=== PATIENT | female | born 1950 | race Caucasian/White ===

== ENCOUNTER 2016-11-28 14:55 | Observation (INO) | payer OTHER ==
[~2016-11-28] VITALS: Ht 170.2 cm; Wt 47.2 kg
[~2016-11-28 14:55] MED LIST: AMLO2.5T PO; AMLO5TAB2 PO; ASPI-110 PO; ATOR40TA16 PO; BLOOD PRESSURE1 M20; CALC600T25; CHEL50TA PO; LEVEMIR SQ; LISI-519 PO; METO25TA6 PO; ONETTES4; SITA25 PO; VITA100032
[2016-11-28 14:59] VITALS: BP 156/75; PULSE 73; RESP 18; TEMP 97.5; O2SAT 100
[2016-11-28] MEDS ORDERED: SODIUM CHLORIDE 0.9% FLUSH 10 ML FLUSH IVF PRN (15:15)
--- NOTE | 2016-11-28 15:22 | PD ---
HPI Chief Complaint: Diabetic Time Seen by Provider: 14:59 Travel History International Travel<30 days: No Contact w/Intl Traveler<30days: No Traveled to known affect area: No History of Present Illness HPI 66-year-old female presents by ambulance after the patient states that her called because she wasn't acting herself. When they got on scene her sugar was 44. They gave her an amp of dextrose and here her sugar is in the 180s. Patient at this time denies any complaints and doesn't remember the episode. She states that she's never dropped her sugar before that she knows about. She states that she is on diabetes pills and insulin and she's not sure of all their names. She states she did eat lunch today. She denies specific modifying factors. Quality is low. PFSH Past Medical History Diabetes: Yes Diminished Hearing: No Heparin Induced Thrombocytopen: No Hypertension: Yes Medical other: Yes Influenza Vaccination: Yes ?: Not Menopausal: Yes : 0 Past Surgical History Cholecystectomy: Yes Social History Alcohol Use: No Tobacco Use: Yes (6CIG/DAY) Allergies-Medications (Allergen,Severity, Reaction): Coded Allergies: No Known Allergies (Unverified , 11/28/16) Reported Meds & Prescriptions Reported Meds & Active Scripts Active Amlodipine (Amlodipine Besylate) 2.5 Mg Tab 2.5 Mg PO DAILY Metoprolol Succinate ER 24 HR (Metoprolol Succinate) 25 Mg Tab 25 Mg PO DAILY Lisinopril 5 Mg Tab 5 Mg PO DAILY Amlodipine (Amlodipine Besylate) 5 Mg Tab 5 Mg PO DAILY Levemir Inj (Insulin Detemir) 1,000 unit/ 10 ML Vial 30 Units SQ AC BREAKFAST Do not mix with any other Insulin. Levemir Inj (Insulin Detemir) 1,000 unit/ 10 ML Vial 9 Units SQ HS Do not mix with any other Insulin. Atorvastatin (Atorvastatin Calcium) 40 Mg Tab 40 Mg PO HS Januvia (Sitagliptin Phosphate) 25 Mg Tab 25 Mg PO DAILY Reported Zinc (Zinc Gluconate) 50 Mg Tab 50 Mg PO DAILY Calcium (Calcium Carbonate) 600 Mg Tab Aspirin 81 (Aspirin) 81 Mg Tabdr 81 Mg PO DAILY Review of Systems Except as stated in HPI: all other systems reviewed are Neg Physical Exam Narrative GENERAL: Well-nourished, well-developed patient. Well-appearing SKIN: Warm and dry. HEAD: Normocephalic and atraumatic. EYES: No injection or drainage. ENT: No nasal drainage noted. NECK: Supple, trachea midline. CARDIOVASCULAR: Regular rate and rhythm RESPIRATORY: Breath sounds equal bilaterally. No accessory muscle use. GASTROINTESTINAL: Abdomen soft, non-tender, nondistended. EXTREMITIES: No edema. NEUROLOGICAL: Awake and alert. Motor and sensory grossly within normal limits. Normal speech. Data Data Last Documented VS Vital Signs Date Time Temp Pulse Resp B/P Pulse Ox O2 Delivery O2 Flow Rate FiO2 11/28/16 15:39 71 18 145/84 98 Room Air 11/28/16 14:59 97.5 Orders Electrocardiogram (11/28/16 15:07) Complete Blood Count With Diff (11/28/16 15:07) Comprehensive Metabolic Panel (11/28/16 15:07) Magnesium (Mg) (11/28/16 15:07) Phosphorus (Po4) (11/28/16 15:07) Urinalysis - C+S If Indicated (11/28/16 15:07) Blood Glucose (11/28/16 15:07) Ecg Monitoring (11/28/16 15:07) Iv Access Insert/Monitor (11/28/16 15:07) Oximetry (11/28/16 15:07) Sodium Chloride 0.9% Flush (Ns Flush) (11/28/16 15:15) Sodium Chlor 0.9% 1000 Ml Inj (Ns 1000 M (11/28/16 16:15) Admit Order (Ed Use Only) (11/28/16 16:20) Labs Laboratory Tests Test 11/28/16 11/28/16 15:25 15:35 White Blood Count 9.2 TH/MM3 Red Blood Count 3.38 MIL/MM3 Hemoglobin 10.4 GM/DL Hematocrit 31.6 % Mean Corpuscular Volume 93.7 FL Mean Corpuscular Hemoglobin 30.8 PG Mean Corpuscular Hemoglobin 32.8 % Concent Red Cell Distribution Width 13.5 % Platelet Count 201 TH/MM3 Mean Platelet Volume 7.3 FL Neutrophils (%) (Auto) 79.9 % Lymphocytes (%) (Auto) 13.0 % Monocytes (%) (Auto) 5.8 % Eosinophils (%) (Auto) 0.6 % Basophils (%) (Auto) 0.7 % Neutrophils # (Auto) 7.3 TH/MM3 Lymphocytes # (Auto) 1.2 TH/MM3 Monocytes # (Auto) 0.5 TH/MM3 Eosinophils # (Auto) 0.1 TH/MM3 Basophils # (Auto) 0.1 TH/MM3 CBC Comment DIFF FINAL Differential Comment Sodium Level 131 MEQ/L Potassium Level 3.8 MEQ/L Chloride Level 99 MEQ/L Carbon Dioxide Level 23.6 MEQ/L Anion Gap 8 MEQ/L Blood Urea Nitrogen 36 MG/DL Creatinine 2.00 MG/DL Estimat Glomerular Filtration 25 ML/MIN Rate Random Glucose 128 MG/DL Calcium Level 8.7 MG/DL Phosphorus Level 3.3 MG/DL Magnesium Level 1.8 MG/DL Total Bilirubin 0.4 MG/DL Aspartate Amino Transf 31 U/L (AST/SGOT) Alanine Aminotransferase 35 U/L (ALT/SGPT) Alkaline Phosphatase 72 U/L Total Protein 6.7 GM/DL Albumin 3.9 GM/DL Urine Color YELLOW Urine Turbidity CLEAR Urine pH 6.0 Urine Specific [place] 1.004 Urine Protein NEG mg/dL Urine Glucose (UA) NEG mg/dL Urine Ketones NEG mg/dL Urine Occult Blood NEG Urine Nitrite NEG Urine Bilirubin NEG Urine Leukocyte Esterase NEG Urine WBC 0-2 /hpf Urine Squamous Epithelial 0-5 /hpf Cells Microscopic Urinalysis Comment CULT NOT INDICATED MDM Medical Decision Making Medical Screen Exam Complete: Yes Emergency Medical Condition: Yes Medical Record Reviewed: Yes (past history confirmed) Interpretation(s) EKG is normal sinus rhythm at 67 without STEMI criteria or consecutive T-wave inversion CBC & BMP Diagram 11/28/16 15:25 Differential Diagnosis Overmedication, infection, poor by mouth intake.... Narrative Course Will check blood work, urinalysis and monitor glucose and reevaluate labs with acute renal failure, patient updated and agrees to admit Physician Communication Physician Communication dr mandujano agrees to admit Diagnosis Primary Impression: Acute kidney injury Additional Impression: Hypoglycemia Admitting Information Admitting Physician Requests: Observation Anna Cornelius MD Nov 28, 2016 15:21
[2016-11-28 15:39] VITALS: BP 145/84; PULSE 71; RESP 18; O2SAT 98
[2016-11-28 15:44] LABS: BLOOD, URINE NEG (NEG); GLUCOSE,URINE NEG (NEG); KETONE, URINE NEG (NEG); NITRITE,URINE NEG (NEG)
[2016-11-28 15:45] LABS: AUTOMATED NEUTROPHIL # 7.3 TH/MM3 (1.8-7.7); BASOPHIL # 0.1 TH/MM3 (0-0.2); BASOPHIL % 0.7 % (0.0-2.0); EOSINOPHIL # 0.1 TH/MM3 (0-0.4); EOSINOPHIL % 0.6 % (0.0-4.0); HEMATOCRIT 31.6 % (35.0-46.0); HEMO FLAGS DIFF FINAL; LYMPHOCYTE # 1.2 TH/MM3 (1.0-4.8); MEAN CELL VOLUME 93.7 FL (80.0-100.0); MEAN CORPUSCULAR HEMOGLOBIN 30.8 PG (27.0-34.0); MEAN CORPUSCULAR HGB CONC 32.8 % (32.0-36.0); MONO % 5.8 % (0.0-8.0); NEUT % 79.9 % (16.0-70.0); PLATELET COUNT 201 TH/MM3 (150-450); RED BLOOD COUNT 3.38 MIL/MM3 (4.00-5.30); RED CELL DISTRIBUTION WIDTH 13.5 % (11.6-17.2); WHITE BLOOD COUNT 9.2 TH/MM3 (4.0-11.0)
[2016-11-28 15:46] LABS: URINE COLOR YELLOW (YELLW/STRAW)
[2016-11-28 15:48] LABS: COMMENT (UR) CULT NOT INDICATED; CULTURE IF INDICATED CULT NOT INDICATED; SQUAMOUS EPITHELIAL CELL URINE 0-5 /hpf (0-5); WBC, URINE 0-2 /hpf (0-5)
[2016-11-28 15:51] LABS: CHLORIDE 99 MEQ/L (98-107); POTASSIUM 3.8 MEQ/L (3.5-5.1); SODIUM (NA) 131 MEQ/L (136-145)
[2016-11-28 15:54] LABS: ANION GAP 8 MEQ/L (5-15); BICARBONATE 23.6 MEQ/L (21.0-32.0); BLOOD UREA NITROGEN 36 MG/DL (7-18); MAGNESIUM 1.8 MG/DL (1.5-2.5)
[2016-11-28 15:57] LABS: ALT (GPT) 35 U/L (10-53); AST (GOT) 31 U/L (15-37); GLOMERULAR FILTRATION RATE 25 ML/MIN (>89)
[2016-11-28 15:59] LABS: TOTAL BILIRUBIN ADULT 0.4 MG/DL (0.2-1.0)
[2016-11-28 16:00] LABS: ALKALINE PHOSPHATASE 72 U/L (45-117)
[2016-11-28] MEDS ORDERED: SODIUM CHLOR 0.9% 1000 ML INJ 1,000 ML IV ONE (16:15)
[2016-11-28 16:24] VITALS: O2SAT 98
[2016-11-28] MEDS ORDERED: DEXTROSE 50% IN WATER 50 ML VIAL(D50) IV PRN (16:30)
[2016-11-28] MEDS ORDERED: MAGNESIUM HYDROXIDE SUSP 30 ML CUP PO PRN (16:30)
[2016-11-28] MEDS ORDERED: ACETAMINOPHEN 325 MG TAB PO PRN (16:30)
[2016-11-28] MEDS ORDERED: SENNOSIDES 8.6 MG TAB PO PRN (16:30)
[2016-11-28] MEDS ORDERED: BISACODYL 10 MG SUPP RECTAL PRN (16:30)
[2016-11-28] MEDS ORDERED: SODIUM CHLORIDE 0.9% FLUSH 10 ML FLUSH IV FLUSH PRN (16:30)
[2016-11-28] MEDS ORDERED: TEMAZEPAM 15 MG CAP PO PRN (16:30)
[2016-11-28] MEDS ORDERED: LACTULOSE SYRUP 20 GM/30 ML CUP PO PRN (16:30)
[2016-11-28] MEDS ORDERED: GLUCAGON 1 MG/ML VIAL OTHER PRN (16:30)
[2016-11-28] MEDS: SODIUM CHLOR 0.9% 1000 ML INJ 1,000 ML IV SCH (17:38)
[2016-11-28] MEDS ORDERED: ENOXAPARIN SODIUM 30 MG/0.3 ML SYRINGE SQ SCH (18:00)
[2016-11-28 18:17] VITALS: BP 129/73; PULSE 71; RESP 18; O2SAT 95
[2016-11-28 19:20] VITALS: O2SAT 97
[2016-11-28 20:00] VITALS: BP 122/74; PULSE 68; RESP 16; TEMP 96.8; O2SAT 98
--- NOTE | 2016-11-28 20:25 | HHI.HP ---
[facility] Service [facility] Primary Care Physician Albaro Reyes MD Admission Diagnosis hypoglycemia, renal failure Diagnoses: Chief Complaint: aletered mental status Travel History International Travel<30 Days: No Contact w/Intl Traveler <30 Da: No Traveled to Known Affected Are: No History of Present Illness 66-year-old female with past medical history of uncontrolled diabetes mellitus, hypertension, hyperlipidemia, CKD, presents by ambulance after the patient states that her called because she wasn't acting herself. When they got on scene her sugar was 44. They gave her an amp of dextrose and when she arrived in our ED her sugar is in the 180s. Patient at this time denies any complaints and doesn't remember the episode. She states that she's never dropped her sugar before that she knows about. She states that she is on diabetes pills and insulin and she's not sure of all their names. She states she did eat lunch today. She denies specific modifying factors. The patient says her diabetes is controlled and she started insulin and in addition to pills however she is not able to specify the medications. She denies any chest pain, shortness of breath, nausea, vomiting, diarrhea or constipation. Her mentation is back to normal at this time. Review of Systems ROS Limitations: Clinical Condition, Poor Historian Except as stated in HPI: all other systems reviewed are Neg Past Family Social History Past Medical History Uncontrolled diabetes mellitus, hypertension, hyperlipidemia, CKD Past Surgical History Cholecystectomy Reported Medications Reported Meds & Active Scripts Active Amlodipine (Amlodipine Besylate) 2.5 Mg Tab 2.5 Mg PO DAILY Metoprolol Succinate ER 24 HR (Metoprolol Succinate) 25 Mg Tab 25 Mg PO DAILY Lisinopril 5 Mg Tab 5 Mg PO DAILY Amlodipine (Amlodipine Besylate) 5 Mg Tab 5 Mg PO DAILY Levemir Inj (Insulin Detemir) 1,000 unit/ 10 ML Vial 30 Units SQ AC BREAKFAST Do not mix with any other Insulin. Levemir Inj (Insulin Detemir) 1,000 unit/ 10 ML Vial 9 Units SQ HS Do not mix with any other Insulin. Atorvastatin (Atorvastatin Calcium) 40 Mg Tab 40 Mg PO HS Januvia (Sitagliptin Phosphate) 25 Mg Tab 25 Mg PO DAILY Reported Zinc (Zinc Gluconate) 50 Mg Tab 50 Mg PO DAILY Calcium (Calcium Carbonate) 600 Mg Tab Aspirin 81 (Aspirin) 81 Mg Tabdr 81 Mg PO DAILY Allergies: Coded Allergies: No Known Allergies (Unverified , 11/28/16) Family History Says parents and siblings are healthy, no diabetes in her family Social History Smokes 6 cigarettes per day, doesn't try to quit. Denies alcohol use or illicit drug use Physical Exam Vital Signs Vital Signs Date Time Temp Pulse Resp B/P Pulse Ox O2 Delivery O2 Flow Rate FiO2 11/28/16 18:17 71 18 129/73 95 Room Air 11/28/16 16:24 98 11/28/16 15:39 71 18 145/84 98 Room Air 11/28/16 14:59 97.5 73 18 156/75 100 Physical Exam GENERAL: This is a well-nourished, well-developed patient, in no apparent distress. SKIN: No rashes, ecchymoses or lesions. Cool and dry. HEAD: Atraumatic. Normocephalic. No temporal or scalp tenderness. EYES: Pupils equal round and reactive. Extraocular motions intact. No scleral icterus. No injection or drainage. ENT: Nose without bleeding, purulent drainage or septal hematoma. Throat without erythema, tonsillar hypertrophy or exudate. Uvula midline. Airway patent. NECK: Trachea midline. No JVD or lymphadenopathy. Supple, nontender, no meningeal signs. CARDIOVASCULAR: Regular rate and rhythm without murmurs, gallops, or rubs. RESPIRATORY: Clear to auscultation. Breath sounds equal bilaterally. No wheezes , rales, or rhonchi. GASTROINTESTINAL: Abdomen soft, non-tender, nondistended. No hepato-splenomegaly , or palpable masses. No guarding. MUSCULOSKELETAL: Extremities without clubbing, cyanosis, or edema. No joint tenderness, effusion, or edema noted. No calf tenderness. Negative Homans sign bilaterally. NEUROLOGICAL: Awake and alert. Cranial nerves II through XII intact. Motor and sensory grossly within normal limits. . Normal speech. Laboratory Laboratory Tests Test 11/28/16 11/28/16 15:25 15:35 White Blood Count 9.2 Red Blood Count 3.38 Hemoglobin 10.4 Hematocrit 31.6 Mean Corpuscular Volume 93.7 Mean Corpuscular Hemoglobin 30.8 Mean Corpuscular Hemoglobin 32.8 Concent Red Cell Distribution Width 13.5 Platelet Count 201 Mean Platelet Volume 7.3 Neutrophils (%) (Auto) 79.9 Lymphocytes (%) (Auto) 13.0 Monocytes (%) (Auto) 5.8 Eosinophils (%) (Auto) 0.6 Basophils (%) (Auto) 0.7 Neutrophils # (Auto) 7.3 Lymphocytes # (Auto) 1.2 Monocytes # (Auto) 0.5 Eosinophils # (Auto) 0.1 Basophils # (Auto) 0.1 CBC Comment DIFF FINAL Differential Comment Sodium Level 131 Potassium Level 3.8 Chloride Level 99 Carbon Dioxide Level 23.6 Anion Gap 8 Blood Urea Nitrogen 36 Creatinine 2.00 Estimat Glomerular Filtration 25 Rate Random Glucose 128 Calcium Level 8.7 Phosphorus Level 3.3 Magnesium Level 1.8 Total Bilirubin 0.4 Aspartate Amino Transf 31 (AST/SGOT) Alanine Aminotransferase 35 (ALT/SGPT) Alkaline Phosphatase 72 Total Protein 6.7 Albumin 3.9 Urine Color YELLOW Urine Turbidity CLEAR Urine pH 6.0 Urine Specific [place] 1.004 Urine Protein NEG Urine Glucose (UA) NEG Urine Ketones NEG Urine Occult Blood NEG Urine Nitrite NEG Urine Bilirubin NEG Urine Leukocyte Esterase NEG Urine WBC 0-2 Urine Squamous Epithelial 0-5 Cells Microscopic Urinalysis Comment CULT NOT INDICATED Result Diagram: 11/28/16 1525 11/28/16 1525 Assessment and Plan Assessment and Plan Acute encephalopathy secondary to hypoglycemia Hypoglycemia Acute kidney injury on CKD Patient with uncontrolled diabetes mellitus, however presented with altered mental status secondary to hypoglycemia. Hold insulin at this time. The patient is placed on hypoglycemic protocol. We'll start insulin sliding scale when blood sugars is stabilized. Start IV fluids. Monitor kidney function. Avoid nephrotoxins. Hypertension, hyperlipidemia appears stable at this time. Restart home medications. Monitor vital signs. DVT prophylaxis prophylaxis with Lovenox renal dose Discussed Condition With Patient, nurse, ED physician Irma Galeana MD Nov 28, 2016 20:25
[2016-11-28] MEDS ORDERED: ATORVASTATIN 40 MG TAB PO SCH (21:00)
[2016-11-28] MEDS: DOCUSATE SODIUM 50 MG/SENNA 8.6 MG TAB PO SCH (21:00)
[2016-11-28] MEDS: SODIUM CHLORIDE 0.9% FLUSH 10 ML FLUSH IV FLUSH SCH (21:20)
--- NOTE | 2016-11-28 22:02 | EKG ---
Date Performed: 11/28/2016 Time Performed: 15:20:25 PTAGE: 66 years EKG: Sinus rhythm POSSIBLE RIGHT VENTRICULAR CONDUCTION DELAY BORDERLINE ECG PREVIOUS TRACING : 02/28/2015 22.29 Compared to the previous tracing rate slower DOCTOR: Swathi Scott Interpretating Date/Time 11/28/2016 22:00:41
[2016-11-29] VITALS: BP 131/81; PULSE 68; RESP 16; TEMP 96.3; O2SAT 100
[2016-11-29] MEDS: SODIUM CHLOR 0.9% 1000 ML INJ 1,000 ML IV SCH (02:22)
[2016-11-29 06:38] LABS: AUTOMATED NEUTROPHIL # 3.5 TH/MM3 (1.8-7.7); BASOPHIL % 0.4 % (0.0-2.0); EOSINOPHIL # 0.2 TH/MM3 (0-0.4); EOSINOPHIL % 3.4 % (0.0-4.0); HEMATOCRIT 32.9 % (35.0-46.0); HEMO FLAGS DIFF FINAL; LYMPH % 28.5 % (9.0-44.0); LYMPHOCYTE # 1.6 TH/MM3 (1.0-4.8); MEAN CORPUSCULAR HEMOGLOBIN 30.5 PG (27.0-34.0); MEAN CORPUSCULAR HGB CONC 32.8 % (32.0-36.0); NEUT % 59.7 % (16.0-70.0); PLATELET COUNT 213 TH/MM3 (150-450); RED BLOOD COUNT 3.54 MIL/MM3 (4.00-5.30); RED CELL DISTRIBUTION WIDTH 13.6 % (11.6-17.2); WHITE BLOOD COUNT 5.8 TH/MM3 (4.0-11.0)
[2016-11-29 07:05] LABS: ALKALINE PHOSPHATASE 65 U/L (45-117); ALT (GPT) 31 U/L (10-53); ANION GAP 7 MEQ/L (5-15); AST (GOT) 24 U/L (15-37); BICARBONATE 24.1 MEQ/L (21.0-32.0); BLOOD UREA NITROGEN 30 MG/DL (7-18); CHLORIDE 111 MEQ/L (98-107); GLOMERULAR FILTRATION RATE 27 ML/MIN (>89); POTASSIUM 4.2 MEQ/L (3.5-5.1); SODIUM (NA) 142 MEQ/L (136-145); TOTAL BILIRUBIN ADULT 0.8 MG/DL (0.2-1.0)
--- NOTE | 2016-11-29 08:28 | HHI.PR ---
Subjective Remarks Feels much better. She was able to eat today. No nausea or vomiting. Patient says do not events overnight. She denies any chest pain or shortness of breath. No palpitations. No sweating. She is eating well. She feels comfortable to go home today. Blood sugar is better controlled. Advised to stop insulin at this time and follow-up with her primary care doctor as outpatient. Objective Vitals Vital Signs Date Time Temp Pulse Resp B/P Pulse Ox O2 Delivery O2 Flow Rate FiO2 11/29/16 00:00 96.3 68 16 131/81 100 11/28/16 20:00 96.8 68 16 122/74 98 11/28/16 19:20 97 21 11/28/16 18:17 71 18 129/73 95 Room Air 11/28/16 16:24 98 11/28/16 15:39 71 18 145/84 98 Room Air 11/28/16 14:59 97.5 73 18 156/75 100 I/O 11/28/16 11/28/16 11/28/16 11/29/16 11/29/16 11/29/16 07:00 15:00 23:00 07:00 15:00 23:00 Intake Total 1660 ml 1100 ml Balance 1660 ml 1100 ml Intake Oral 660 ml IV Total 1000 ml 1100 ml # Voids 3 1 # Bowel Movements 0 Result Diagram: 11/29/16 0445 11/29/16 0445 Objective Remarks GENERAL: This is a well-nourished, well-developed patient, in no apparent distress. CARDIOVASCULAR: Regular rate and rhythm without murmurs, gallops, or rubs. RESPIRATORY: Clear to auscultation. Breath sounds equal bilaterally. No wheezes , rales, or rhonchi. GASTROINTESTINAL: Abdomen soft, non-tender, nondistended. No hepato-splenomegaly , or palpable masses. No guarding. MUSCULOSKELETAL: Extremities without clubbing, cyanosis, or edema. No joint tenderness, effusion, or edema noted. No calf tenderness. Negative Homans sign bilaterally. NEUROLOGICAL: Awake and alert. Cranial nerves II through XII intact. Motor and sensory grossly within normal limits. . Normal speech. A/P Assessment and Plan Acute encephalopathy secondary to hypoglycemia. Resolved. Hypoglycemia. Resolved. Acute kidney injury on CKD. Improving. Patient with uncontrolled diabetes mellitus, however presented with altered mental status secondary to hypoglycemia. Hold insulin at this time. The patient is placed on hypoglycemic protocol. Stop insulins at this time patient to follow-up as outpatient with her PCP. On IV fluids. Encourage PO intake. Monitor kidney function. Avoid nephrotoxins. Hypertension, hyperlipidemia appears stable at this time. Restart home medications. Monitor vital signs. DVT prophylaxis prophylaxis with Lovenox renal dose Discussed Condition With Patient, nurse Discharge Planning Discharge home in stable condition to follow-up with PCP as outpatient. Medication as per medication reconciliation's. Stop insulin at this time is patient with hypoglycemia on admission, improved, patient to follow up with PCP as outpatient. Activity activity as tolerated Diet healthy heart diet and diabetic diet Irma Galeana MD Nov 29, 2016 08:28
--- NOTE | 2016-11-29 08:31 | HHI.DCPOC ---
Discharge Care Plan Goals to Promote Your Health * To prevent worsening of your condition and complications * To maintain your health at the optimal level Directions to Meet Your Goals Take your medications as prescribed Follow your dietary instruction Follow activity as directed Keep your appointments as scheduled Take your immunizations and boosters as scheduled If your symptoms worsen call your PCP, if no PCP go to Urgent Care Center or Emergency Room Smoking is Dangerous to Your Health. Avoid second hand smoke Call the 24-hour hour crisis hotline for domestic abuse at Irma Galeana MD Nov 29, 2016 08:31
[2016-11-29 08:35] VITALS: BP 148/84; PULSE 70; RESP 16; TEMP 98; O2SAT 98
[2016-11-29] MEDS ORDERED: amLODIPine BESYLATE 5 MG TAB PO SCH (09:00)
[2016-11-29] MEDS ORDERED: ASPIRIN EC 81 MG TABEC PO SCH (09:00)
[2016-11-29] MEDS ORDERED: LISINOPRIL 5 MG TAB PO SCH (09:00)
[2016-11-29] MEDS: SODIUM CHLORIDE 0.9% FLUSH 10 ML FLUSH IV FLUSH SCH (09:00)
[2016-11-29] MEDS ORDERED: METOPROLOL SUCCINATE 25 MG EXTENDED RELEASE TAB PO SCH (09:00)
[2016-11-29] MEDS: DOCUSATE SODIUM 50 MG/SENNA 8.6 MG TAB PO SCH (09:00)
== END 2016-11-29 10:32 | disposition home or self-care (01) ==
LOC: PHED 14:55 → PHEDA 16:20 → PH3A 18:31
PROVIDERS: ADMIT Hospitalist; ATTEND Hospitalist
DX: E11.649 Type 2 diabetes mellitus with hypoglycemia without coma (principal); G93.40 Encephalopathy, unspecified; E78.5 Hyperlipidemia, unspecified; I12.9 Hypertensive chronic kidney disease with stage 1 through stage 4 chronic kidney disease, or unspecified chronic kidney disease; N18.9 Chronic kidney disease, unspecified; N17.9 Acute kidney failure, unspecified; F17.210 Nicotine dependence, cigarettes, uncomplicated; Z79.4 Long term (current) use of insulin; Z79.84 Long term (current) use of oral hypoglycemic drugs
CPT/HCPCS: 80053; 81001; 82948; 83735; 84100; 85025; 93005; 97161; 99285; G0378; G8987; G8988; J1650; J7030